=== PATIENT | female | born 1995 | race Caucasian/White ===

== ENCOUNTER → 2019-08-27 10:53 | Outpatient (CLI) | payer OTHER, SELFPAY ==
[2019-08-27 12:19] LABS: HCG,Quantitative 395 mIU/mL
== END ==
PROVIDERS: Visit Provider Nurse Practitioner Obstetrics & Gynecology
DX: Z32.00 Encounter for pregnancy test, result unknown (principal)
CPT/HCPCS: 36415; 84702

== ENCOUNTER → 2019-09-16 15:58 | Outpatient (CLI) | payer OTHER, SELFPAY ==
[2019-09-16 17:02] LABS: Basophils % 0.4 % (0.1-2.0); Eosinophils # 0.1 K/mm3 (0.0-0.4); Eosinophils % 0.5 % (0.1-12.0); Hematocrit 38.7 % (37.0-47.0); Hemoglobin 12.9 g/dL (12.2-16.2); Lymphocytes # 2.2 K/mm3 (0.7-4.5); Lymphocytes % 20.8 % (10-50); Mean Corpuscular HGB Conc 33.3 g/dL (31.8-35.4); Mean Corpuscular Hemoglobin 30.2 pg (27.0-31.2); Mean Corpuscular Volume 90.8 fl (81-99); Mean Platelet Volume 7.8 fl (7.4-10.4); Monocytes # 0.5 K/mm3 (0.1-1.0); Monocytes % 4.8 % (1.7-9.3); Neutrophils # 7.9 K/mm3 (1.8-7.8); Neutrophils % 73.5 % (37.0-80.0); Platelet Count 272 K/mm3 (142-424); Red Blood Count 4.26 M/mm3 (4.20-5.40); Red Cell Distribution Width 12.4 % (11.5-17.5); White Blood Count 10.8 K/mm3 (4.8-10.8)
[2019-09-18 16:58] LABS: HIV Screen 4th Generation wRfx Non Reactive (Non Reactive); Hepatitis B Surface Antigen Negative (Negative); Hepatitis C Antibody <0.1 s/co ratio (0.0-0.9); Rapid Plasma Reagin Ab Titer Non Reactive (NonRea<1:1); Rubella Antibodies, IgG 4.37 index (Immune >0.99)
== END ==
PROVIDERS: Visit Provider Nurse Practitioner Obstetrics & Gynecology
DX: Z34.90 Encounter for supervision of normal pregnancy, unspecified, unspecified trimester (principal)
CPT/HCPCS: 36415; 85025; 86592; 86703; 86762; 86850; 87340; 87380; G0432

== ENCOUNTER → 2019-09-23 12:47 | Outpatient (CLI) | payer OTHER, SELFPAY ==
--- NOTE | 2019-09-23 12:47 | US_ITS ---
PROCEDURE: US OB <= 14 WEEKS FETUS CLINICAL INDICATION: for dates Evaluate 4 dates COMPARISON: No exams were available for comparison FINDINGS: An intrauterine gestational sac is present with a pole with a crown-rump length of 1.71cm correlating to gestational age of 8weeks 2days. heart tones are present with an FHR of 182bpm. Yolk sac is noted. The adnexa unremarkable IMPRESSION: Live IUP at 8 weeks 2 days Estimated due date by Ultrasound is 05/02/2020 Dictated by: Micah Fisher MD 09/23/2019 13:47 Electronically signed by Micah Fisher MD in [place] 09/23/2019 13:47
== END ==
PROVIDERS: PCP Pediatrics; Visit Provider Nurse Practitioner Obstetrics & Gynecology
DX: Z34.90 Encounter for supervision of normal pregnancy, unspecified, unspecified trimester (principal)
CPT/HCPCS: 76801

== ENCOUNTER → 2019-12-15 12:36 | Outpatient (CLI) | payer OTHER, SELFPAY ==
--- NOTE | 2019-12-15 12:36 | US_ITS ---
PROCEDURE: US OB /MATERNAL DETAIL CLINICAL INDICATION: 20wk gestation of Anatomy exam, COMPARISON: US OB <= 14 WEEKS FETUS from 09/23/2019 FINDINGS: Single viable intrauterine gestation. Cephalic position. Placenta: Anterior with a possible posterior wraparound component versus a Ace Garcia contractionplacenta grade 1. There is average amount fluid. The cervix appears satisfactory. Closed and measuring 5 cm transabdominal in length. Complete survey performed and was unremarkable on the submitted images as in PACS. No discrete anomalies identified on survey imaging by technologist. Active fetus. Three-vessel cord with satisfactory umbilical cord insertion. 4- chamber heart noted. Survey of brain & ventricles Unremarkable. Face and neck survey unremarkable. Diaphragm and chest views unremarkable. Abdomen: Both kidneys noted and unremarkable. Stomach noted and satisfactory. Spine: Survey of the spine satisfactory with no anomalies identified nor imaged. Both arms and legs noted. Amniotic Fluid: Adequate. Maternal adnexa: No significant findings. Measurements: Average ultrasound age 19weeks 6days. Gestational Age 19 weeks 4 days Estimated due date by ultrasound age 0905/04/2020. Estimated weight 319g BPD = 19weeks 6days OFD = 20 weeks 3 days HC = 19weeks 4days AC = 19weeks 6days FL = 20weeks 1day Growth Percentile= 64% Heart Rate = 133bpm Cerebellum = 19weeks 6days Humerus = 19weeks 6days HC/AC is 1.16 CI is 0.76 FL/BPD is 0.71 FL/AC is 0.22 IMPRESSION: There is a single live fetus which is in cephalic presentation with an average ultrasound age of 19 weeks 6 days. All parameters correlate with no obvious anomalies. Please see above for detail. Dictated by: Micah Fisher MD 12/15/2019 17:38 Electronically signed by Micah Fisher MD in [place] 12/15/2019 17:38
== END ==
PROVIDERS: PCP Pediatrics; Visit Provider Nurse Practitioner Obstetrics & Gynecology
DX: Z3A.20 20 weeks gestation of pregnancy (principal)
CPT/HCPCS: 76811

== ENCOUNTER → 2020-03-03 09:18 | Outpatient (CLI) | payer OTHER, SELFPAY ==
[2020-03-03 13:07] LABS: Glucose 1 Hour 119 mg/dL (74-100); Glucose,Fasting 89 mg/dl (74-100)
== END ==
PROVIDERS: Visit Provider Nurse Practitioner Obstetrics & Gynecology
DX: Z34.90 Encounter for supervision of normal pregnancy, unspecified, unspecified trimester (principal)
CPT/HCPCS: 36415; 82951

== ENCOUNTER → 2020-04-04 17:11 | Outpatient (CLI) | payer OTHER, SELFPAY | PROVIDERS: Visit Provider Nurse Practitioner Obstetrics & Gynecology | DX: Z34.90 Encounter for supervision of normal pregnancy, unspecified, unspecified trimester (principal) | CPT/HCPCS: 86403 ==

== ENCOUNTER → 2020-04-08 08:28 | Outpatient (CLI) | payer OTHER, SELFPAY ==
--- NOTE | 2020-04-08 08:28 | US_ITS ---
PROCEDURE: US OB BIOPHYSICAL PROFILE CLINICAL INDICATION: sga For gestational age TECHNIQUE: FINDINGS: The following parameters are obtained: Average ultrasound age is Average 35weeks Estimated due date by ultrasound is 05/13/2020. Estimated weight is 2,544g. This is 15th percentile BPD 34 weeks 5 days, OFD 37 weeks 6 days, HC 35 weeks 3 days, AC 35 weeks 1 day, FL 34 weeks 5 days heart rate: 135bpm bpm. HC/AC: 1.01 Cephalic index: 0.76 FL/BPD: 0.78 FL/AC: 0.22 Amniotic fluid index: 8.55cm Qualitative AFV: 2 breathing movements: 2 Gross body movements: 2 Tone: 2 Biophysical profile score: 8 There is a single live fetus which is in cephalic presentation. The cervix is closed and measures 3 to 4 cm trans abdominal. The placenta is anterior and grade 2 IMPRESSION: There is a single live fetus which is in cephalic presentation. Average ultrasound age is 35 weeks 0 days with an estimated weight of 2544 g which is 15th percentile. Amniotic fluid volume is lower normal at 9 cm. Biophysical profile is 8 of 8. Placenta is anterior and grade 2 Dictated by: Micah Fisher MD 04/08/2020 11:55 Micah Fisher MD in [place] 04/08/2020 11:55
== END ==
PROVIDERS: PCP Pediatrics; Visit Provider Nurse Practitioner Obstetrics & Gynecology
DX: O36.5990 Maternal care for other known or suspected poor fetal growth, unspecified trimester, not applicable or unspecified (principal)
CPT/HCPCS: 76811; 76819

== ENCOUNTER 2020-04-13 12:42 | Outpatient (CLI) | payer OTHER, SELFPAY ==
[2020-04-13 13:00] VITALS: BP 128/80; PULSE 75; RESP 18; TEMP 36.9; O2SAT 98
[2020-04-13 13:04] VITALS: BMI 27.2
[2020-04-13 13:10] LABS: Microscopic, Urine URINE MICROSCOPIC (MICROSCOPIC)
[2020-04-13 13:13] LABS: Appearance,Urine CLEAR (Clear); Bilirubin,Urine Negative (Negative); Blood, Urine Negative (Negative); Color,Urine YELLOW (Yellow); Glucose,Urine (UA) Negative (Negative); Ketones,Urine Negative (Negative); Leukocyte Esterase,Urine TRACE (Negative); Nitrate,Urine Negative (Negative); Protein,Urine Negative (Negative); Urobilinogen,Urine 0.2 EU/dl (0.2)
[2020-04-13 13:21] VITALS: BP 128/80; PULSE 75; RESP 18; TEMP 36.9; O2SAT 98; BMI 26.5
[2020-04-13 13:26] LABS: Amphetamine/Metha Screen,Urine Negative ng/ml (<1000); Bacteria,Urine Trace /lpf; Benzodiazepines Screen,Urine Negative ng/ml (<200)
[2020-04-13 13:27] LABS: Barbiturates Screen,Urine Negative ng/ml (<200)
[2020-04-13 13:28] LABS: Cannabinoid Screen,Urine Negative ng/ml (<50); Cocaine Screen,Urine Negative ng/ml (<300)
[2020-04-13 13:29] LABS: Methadone Screen,Urine Negative ng/ml (<300)
[2020-04-13 13:30] LABS: Opiate Screen,Urine Negative ng/ml (<300); Phencyclidine Screen,Urine Negative ng/ml (<25)
== END 2020-04-13 14:28 | disposition home or self-care (01) ==
LOC: OBOUT 12:44 → OB 12:50
PROVIDERS: PCP Pediatrics; Visit Provider Nurse Practitioner Obstetrics & Gynecology
DX: O60.03 Preterm labor without delivery, third trimester (principal); Z3A.37 37 weeks gestation of pregnancy; R11.2 Nausea with vomiting, unspecified
CPT/HCPCS: 59025; 80305; 81001; G0463

== ENCOUNTER 2020-04-14 22:49 | Outpatient (CLI) | payer OTHER, SELFPAY ==
[2020-04-14 23:24] VITALS: BMI 26.5
[2020-04-14 23:29] LABS: Microscopic, Urine URINE MICROSCOPIC (MICROSCOPIC)
[2020-04-14 23:33] LABS: Appearance,Urine CLEAR (Clear); Bilirubin,Urine Negative (Negative); Blood, Urine Negative (Negative); Color,Urine YELLOW (Yellow); Glucose,Urine (UA) Negative (Negative); Ketones,Urine Negative (Negative); Leukocyte Esterase,Urine TRACE (Negative); Nitrate,Urine Negative (Negative); Protein,Urine Negative (Negative); Specific Gravity, Urine <= 1.005 (1.005-1.030); Urobilinogen,Urine 0.2 EU/dl (0.2)
[2020-04-14 23:45] LABS: Fetal Membrane Rupture (Rapid) Negative (Negative)
[2020-04-14 23:47] LABS: Barbiturates Screen,Urine Negative ng/ml (<200)
[2020-04-14 23:48] LABS: Benzodiazepines Screen,Urine Negative ng/ml (<200)
[2020-04-14 23:49] LABS: Amphetamine/Metha Screen,Urine Negative ng/ml (<1000); Cannabinoid Screen,Urine Negative ng/ml (<50)
[2020-04-14 23:50] LABS: Cocaine Screen,Urine Negative ng/ml (<300); Methadone Screen,Urine Negative ng/ml (<300)
[2020-04-14 23:51] LABS: Opiate Screen,Urine Negative ng/ml (<300); RBC,Urine Occasional #/hpf (0-3)
[2020-04-14 23:52] LABS: Bacteria,Urine 1+ /lpf; Phencyclidine Screen,Urine Negative ng/ml (<25)
== END 2020-04-15 00:20 | disposition home or self-care (01) ==
LOC: OBOUT 22:51 → OB 22:54
PROVIDERS: PCP Nurse Practitioner Obstetrics & Gynecology; Visit Provider Obstetrics & Gynecology
DX: O60.03 Preterm labor without delivery, third trimester (principal); Z3A.37 37 weeks gestation of pregnancy
CPT/HCPCS: 59025; 80305; 81001; 84112; G0463

== ENCOUNTER 2020-04-26 05:07 | Inpatient (IN) | payer OTHER, SELFPAY ==
[2020-04-26] VITALS (8 sets, daily range): BP systolic 119–140; BP diastolic 70–83; PULSE 77–95; RESP 16–20; TEMP 36.4–36.8; O2SAT 98–100; BMI 26.5
[2020-04-26 05:46] LABS: Microscopic, Urine URINE MICROSCOPIC (MICROSCOPIC)
[2020-04-26 05:47] LABS: Basophils % 0.2 % (0.1-2.0); Eosinophils # 0.1 K/mm3 (0.0-0.4); Eosinophils % 0.7 % (0.1-12.0); Hematocrit 32.2 % (37.0-47.0); Hemoglobin 10.9 g/dL (12.2-16.2); Lymphocytes # 2.6 K/mm3 (0.7-4.5); Mean Corpuscular HGB Conc 33.9 g/dL (31.8-35.4); Mean Corpuscular Volume 79.6 fl (81-99); Mean Platelet Volume 10.1 fl (7.4-10.4); Monocytes # 0.7 K/mm3 (0.1-1.0); Monocytes % 7.4 % (1.7-9.3); Neutrophils # 6.3 K/mm3 (1.8-7.8); Neutrophils % 64.8 % (37.0-80.0); Platelet Count 222 K/mm3 (142-424); Red Blood Count 4.04 M/mm3 (4.20-5.40); Red Cell Distribution Width 14.5 % (11.5-17.5); White Blood Count 9.7 K/mm3 (4.8-10.8)
[2020-04-26 05:48] LABS: Appearance,Urine CLEAR (Clear); Bilirubin,Urine Negative (Negative); Blood, Urine Negative (Negative); Color,Urine YELLOW (Yellow); Glucose,Urine (UA) Negative (Negative); Ketones,Urine Negative (Negative); Leukocyte Esterase,Urine Negative (Negative); Nitrate,Urine Negative (Negative); Protein,Urine Negative (Negative); Specific Gravity, Urine 1.015 (1.005-1.030); Urobilinogen,Urine 0.2 EU/dl (0.2)
[2020-04-26 05:59] LABS: Barbiturates Screen,Urine Negative ng/ml (<200)
[2020-04-26 06:00] LABS: Amphetamine/Metha Screen,Urine Negative ng/ml (<1000); Benzodiazepines Screen,Urine Negative ng/ml (<200)
[2020-04-26 06:01] LABS: Cannabinoid Screen,Urine Negative ng/ml (<50); Methadone Screen,Urine Negative ng/ml (<300)
[2020-04-26 06:02] LABS: Cocaine Screen,Urine Negative ng/ml (<300)
[2020-04-26 06:03] LABS: Opiate Screen,Urine Negative ng/ml (<300); Phencyclidine Screen,Urine Negative ng/ml (<25)
[2020-04-26 06:18] LABS: Bacteria,Urine 1+ /lpf
[2020-04-26 06:41] LABS: Coronavirus 19 IgG Antibody Positive (Negative); Coronavirus 19 IgM Antibody Negative (Negative)
--- NOTE | 2020-04-26 08:29 | HMH.LABNOT ---
Labor Note - Subjective: Date: 04/26/20 Time: 08:29 regular contraction - Objective: NST:: Reactive Contractions:: every 2-3 minutes Cervical Dilation:: 2 Effacement:: 50% Station: -3 Membranes: artificially ruptured - Fetus: Monitoring?: Yes monitoring type:: External - Assessment: Labor progressing?: Yes Cephalopelvic disproportion?: No Patient Problems: All Active Problems Inguinal strain (Acute) (Acute) - Plan: Anesthesia for epidural?: No Continue to labor down?: Yes Plan for ?: No Continue to monitor?: Yes Start pushing?: No
--- NOTE | 2020-04-26 08:39 | HMH.OBAPHP ---
OB - H&P: HPI Antepartum - History of Present Illness Chief complaint: Pressure and occasional contractions, term History of present illness: She is a 24-year-old 3 para 1 aborta 1 who is 39 weeks and 1 day gestational age. She complains of some pressure and wanted to be induced at 39 weeks. - History of Present Criteria for establishing EDC:: LMP confirmed by 1st trimester US care: good care Ultrasounds: normal 1st trimester US, normal mid trimester US Obstetrical complications: none Medical complications: none - Labs Blood type: A (+) positive Rubella: immune RPR/VDRL: nonreactive GBS status: negative HBsAG: negative (She is COVID Ig G+ today.) [facility] History I have reviewed the patient's past medical history: Yes Medical History: Reports:: Anxiety, Depression Denies:: Diabetes Mellitus Type 1, Diabetes Mellitus Type 2, Migraine, MRSA, Seizures *Have you ever received a pneumonia vaccine?: No *Have you received a flu vaccine this season?: Yes Other Medical History: Reports: Other Laterality Cases: Bilateral: Other Other Surgeries: Yes: Other. 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 Review of Systems - Review of Systems Review of systems:: pertinent systems reviewed and negative unless documented below Meds Home Medications Medication Instructions Recorded Confirmed Type RX: Buspirone HCl [Buspirone 7.5mg 7.5 mg PO BID 10/15/19 04/26/20 History tablets] Mv-Mn/Iron/FA/Herbal/Digestive 1 each PO DAILY 04/26/20 04/26/20 History [ One Tablet] RX: Magnesium 250 mg PO DAILY 04/26/20 04/26/20 History Allergies Allergy/AdvReac Type Severity Reaction Status Date / Time latex Allergy Verified 04/20/20 13:40 OB - H&P: Exam - Physical Exam Vital signs: Temp Pulse Resp BP Pulse Ox 97.5 F L 83 20 119/79 98 04/26/20 07:33 04/26/20 07:33 04/26/20 07:33 04/26/20 07:04/26/20 05:27 - Constitutional no acute distress - Routine HEENT Exam Head: Present: normocephalic Eye: Present: EOMI, PERRL ENT: Present: mucous membranes moist - Routine Neck Exam Present: supple, full ROM - Routine Respiratory Exam Absent: accessory muscle use (good air entry bilaterally), respiratory distress, wheezes, crackles - Routine Cardiovascular Exam Present: RRR. Absent: murmur - Routine Abdominal Exam Present: soft, normoactive bowel sounds. Absent: tenderness, distended, guarding - Routine Rectal Exam Patient deferred: visual exam, digital exam - Routine Exam Patient deferred: external exam, groin exam, perineal exam - Routine Extremities Exam Present: full ROM. Absent: cyanosis, edema - Routine Skin Exam Present: intact. Absent: cyanosis - Routine Neurological Exam Present: alert, oriented X3 - Routine Psychiatric Exam Present: normal affect OB - Results - Labs Labs: Short CBC 04/26/20 Range/Units 05:25 WBC 9.7 (4.8-10.8) K/mm3 Hgb 10.9 L (12.2-16.2) g/dL Hct 32.2 L (37.0-47.0) % Plt Count 222 (142-424) K/mm3 Urine 04/26/20 Range/Units 05:25 Urine Color Yellow (Yellow) Urine Appearance Clear (Clear) Urine pH 7.0 (5.0-8.5) Ur Specific [place] 1.015 (1.005-1.030) Urine Protein Negative (Negative) Urine Glucose (UA) Negative (Negative) OB - A/P Antepartum (1) Normal delivery Current visit: Yes Status: Acute - Additional Plan Planning to breastfeed?: Yes Plan: i
--- NOTE | 2020-04-26 09:20 | P.PN_ITS ---
[facility] Anesthesia Checklist - Structural Data Admitted From: Inpatient Planned Operative Procedure/s: labor epidural Consent for Planned Operative Procedure(s) Verified: Yes - Airway Assessment C-Spine Mobility Assessed: Yes TMJ Mobility Assessed: Yes Dentition: Good Dentition - Neurological Assessment Level of Consciousness: Awake, Alert, Appropriate - Anesthesia Plan Anesthesia Risk discussed: Yes Anesthesia Plan: Verified ASA Class: II Anesthesia Type: Epidural [facility] History I have reviewed the patient's past medical history: Yes Medical History: Reports:: Anxiety, Depression Denies:: Diabetes Mellitus Type 1, Diabetes Mellitus Type 2, Migraine, MRSA, Seizures *Have you ever received a pneumonia vaccine?: No *Have you received a flu vaccine this season?: Yes Other Medical History: Reports: Other Anesthesia experience/problems:: none Laterality Cases: Bilateral: Other Other Surgeries: Yes: Other. 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
--- NOTE | 2020-04-26 11:11 | HMH.LABNOT ---
Labor Note - Subjective: Date: 04/26/20 Time: 11:11 regular contraction - Objective: Contractions:: every 2-3 minutes Cervical Dilation:: 4 Effacement:: 75% Station: -3 Membranes: artificially ruptured - Fetus: Monitoring?: Yes monitoring type:: External - Assessment: Labor progressing?: Yes Cephalopelvic disproportion?: No Patient Problems: All Active Problems Normal delivery (Acute) Inguinal strain (Acute) (Acute) - Plan: Anesthesia for epidural?: Yes Continue to labor down?: Yes Plan for ?: No Continue to monitor?: Yes Start pushing?: No
--- NOTE | 2020-04-26 13:49 | HMH.LABNOT ---
Labor Note - Subjective: Date: 04/26/20 Time: 13:49 regular contraction - Objective: NST:: Reactive Contractions:: every 2-3 minutes Cervical Dilation:: 4-5 Effacement:: 75% Station: -3 Membranes: artificially ruptured - Fetus: Monitoring?: Yes monitoring type:: Internal and External Comment:: I inserted an IUPC - Assessment: Labor progressing?: No Cephalopelvic disproportion?: No Patient Problems: All Active Problems Normal delivery (Acute) Inguinal strain (Acute) (Acute) - Plan: Anesthesia for epidural?: Yes Continue to labor down?: Yes Plan for ?: No Continue to monitor?: Yes Start pushing?: No Comment:: She really has not progressed much over the last couple of hours. We will see how she does over the next few hours. If she fails to progress beyond what she has we will go ahead and do a .
--- NOTE | 2020-04-26 16:00 | HMH.LABNOT ---
Labor Note - Subjective: Date: 04/26/20 Time: 15:35 regular contraction - Objective: NST:: Reactive Contractions:: every 2-3 minutes Cervical Dilation:: 6 Effacement:: 90% Station: -1 Membranes: artificially ruptured - Fetus: Monitoring?: Yes monitoring type:: Internal - Assessment: Labor progressing?: Yes Cephalopelvic disproportion?: No Patient Problems: All Active Problems Normal delivery (Acute) Inguinal strain (Acute) (Acute) - Plan: Anesthesia for epidural?: Yes Continue to labor down?: Yes Plan for ?: No Continue to monitor?: Yes Start pushing?: No
--- NOTE | 2020-04-26 17:17 | HMH.LABNOT ---
Labor Note - Subjective: Date: 04/26/20 Time: 17:17 irregular contractions - Objective: NST:: Reactive Contractions:: every 2-3 minutes Cervical Dilation:: 6 Effacement:: 90% Station: -1 Membranes: artificially ruptured - Fetus: Monitoring?: Yes - Assessment: Labor progressing?: No Cephalopelvic disproportion?: No Patient Problems: All Active Problems Normal delivery (Acute) Inguinal strain (Acute) (Acute) - Plan: Anesthesia for epidural?: Yes Continue to labor down?: Yes Plan for ?: Yes Continue to monitor?: Yes Start pushing?: No Comment:: She really has not progressed much in the last hour and a half. We will give her a little more time and see how she does hopefully this baby's head will come down a little lower and she will dilate up her cervix more. When she has a contraction she does bring the head down quite a bit. There is considerable molding. She is very petite so we will see how she does over the next few hours. If she has not progressed we will plan for a .
--- NOTE | 2020-04-26 19:19 | HMH.LABNOT ---
Labor Note - Subjective: Date: 04/26/20 Time: 19:19 regular contraction - Objective: NST:: Reactive Contractions:: every 2-3 minutes Cervical Dilation:: 6-7 Effacement:: 90% Station: -1 Membranes: artificially ruptured - Fetus: Monitoring?: Yes monitoring type:: Internal - Assessment: Labor progressing?: No Cephalopelvic disproportion?: Yes Patient Problems: All Active Problems Normal delivery (Acute) Inguinal strain (Acute) (Acute) - Plan: Anesthesia for epidural?: Yes Continue to labor down?: No Plan for ?: Yes Continue to monitor?: Yes Start pushing?: No Continue pushing?: No Comment:: She is still about 6 to 7 cm and really has not progressed. The cervix has gotten a little thicker and more edematous. There is significant swelling of the head. She has really not progressed over the last 3 to 4 hours so we will go ahead and do a section for failure to progress and pelvic disproportion. We discussed the risks of surgery that includes bleeding, infection, injuries to the bowel and bladder. We discussed the rare risk of DVT. We did discuss the need for DVT prophylaxis. All questions were answered and consents were signed.
[2020-04-26 20:17] LABS: Cord Blood PH 7.36 (7.35-7.45)
--- NOTE | 2020-04-26 20:43 | HMH.OPNOTE ---
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 Kennedy RAIL CAR WELDER:: Cl Prado Anesthesia: epidural Estimated blood loss (mL): 1,000 Clinical Note:: She is a 24-year-old 3 para 1, aborta 1 who was 39+ weeks gestational age. She was having lots of cramps and lower abdominal pressure so we elected to induce her labor at term. She was started on IV oxytocin and had her membranes ruptured. Under labor epidural she progressed about 6 to 7 cm but the cervix remained edematous and she really did not progress beyond that. As result of that pelvic disproportion was diagnosed and she was taken for a lower segment transverse section. The risks and benefits of surgery discussed the patient and her prior to surgery. Operative findings:: She delivered a liveborn female child at 8:07 PM in the evening of April 26, 2020. The baby was in the direct OP position. She had Apgars of 8 at 1 minute and 9 at 5 minutes. pH was 7.36. Ovaries and tubes appeared normal. The uterus was quite boggy after the surgery. This required a B-Marie suture Operative note:: She was taken to the operating room where spinal anesthesia was found be adequate. She was prepped and draped in normal sterile fashion in the supine position with a leftward tilt. A Crespo catheter was in the bladder. A Pfannenstiel skin incision was made with knife then carried through to the underlying layer of fascia with cautery. The fascia was opened in the midline with cautery and extended laterally using Smith scissors. Bert clamps were applied to the superior aspect of the fascial incision which was tented up and the underlying rectus muscles dissected off using cautery. The Bert clamps were then applied to the inferior aspect of the fascial incision which in a similar fashion was tented up and the underlying rectus muscles dissected off using cautery. The rectus muscles were then in the midline, the peritoneum identified, and entered sharply with Metzenbaum scissors. This incision was then extended superiorly and inferiorly with cautery. We had good visualization of the bladder inferiorly. The bladder peritoneum was then opened in the midline and extended laterally using Metzenbaum scissors. A bladder flap was created digitally. Transverse incision was made through the uterine muscle to the amnion. This incision was then extended laterally using fingers traction. The amnion was entered sharply with knife. There was clear amniotic fluid. The infant's head was then delivered atraumatically. A loose nuchal cord was then reduced. This was followed by the anterior shoulder and the rest of the infant's body atraumatically. The oropharynx and nasopharynx were bulb suctioned. The baby was quite vigorous so we allowed the cord to continue to pulsate for approximately 1 minute. The cord was then doubly clamped and cut. The infant was then handed off to Dr. Rodriguez who assigned Apgars of 8 at 1 minute and 9 at 5 minutes. We then obtained cord blood as well as cord pH. The pH was 7.36. Using gentle traction on the cord and countertraction on the fundus I was able to easily deliver the placenta intact. It had a normal three-vessel cord. The uterus was then cleared of clots and debris . The uterine incision was then closed using running 0 Vicryl suture in a locked fashion. A second layer of the same suture was used to imbricate the first layer. The bladder peritoneum was then closed using running 2-0 Vicryl suture in a locked fashion. The gutters and cul-de-sac were then cleared of clots and debris . There was a small amount of bleeding from the left side and I placed 2 [id number]
--- NOTE | 2020-04-26 20:59 | P.PN_ITS ---
[facility] Anesthesia Record Part I Intake, IV Amount: 800 Estimated blood loss (mL): 1,000 Urine output (mL): 400 Blood Products used (#): none Blood Pressure: 128/77 SaO2: 100 Pulse Rate: 95 Respiratory Rate: 17 Temperature: 98.2 F Patient is:: Awake, Drowsy, Stable Stable to PACU at:: 20:52
--- NOTE | 2020-04-26 21:41 | PC.NURSE ---
2123-detailed report called to PETRA Sharp 2127-pt transported to OB room 277 via hospital bed w/tigist rails up per PETRA Levy and ST Harshil and left in care of PETRA Sharp with bed locked in lowest position, vss, pt stable
--- NOTE | 2020-04-26 21:43 | SUR.OPER ---
2007-viable infant female born at this time
[2020-04-27 07:05] LABS: Hematocrit 29.7 % (37.0-47.0)
--- NOTE | 2020-04-27 07:21 | HMH.PHAVTE ---
[facility] Pharmacy VTE Monitoring - Patient Demographics Admission date: 04/26/20 Report Date: 04/27/20 Time: 07:21 Allergies/Adverse Reactions: Patient Allergies latex Allergy (Verified 04/20/20 13:40) Height: 1.52 m Weight: 61.689 kg Patient Problems: Current Active Problems Normal delivery (Acute) - VTE Risk Labs: VTE Related Lab Results Hgb 10.0 g/dL (12.2-16.2) L 04/27/20 06:10 Hct 29.7 % (37.0-47.0) L 04/27/20 06:10 Plt Count 222 K/mm3 (142-424) 04/26/20 05:25 - Prophylaxis VTE Prophylaxis Ordered?: Yes Types of VTE Prophylaxis: IPCS Thigh High Location of Applied Device: Bilateral Lower Extremeties
--- NOTE | 2020-04-27 08:21 | HMH.ACPN2 ---
Internal Medicine - PN: Subj *Date: 04/27/20 *Time: 08:21 Interval history: She is doing very well this morning. She is eating and drinking and ambulating. She is breast-feeding. Her lochia is normal. Her postoperative hemoglobin is 10.0. Preoperatively it was 10.9. Exam Vital signs and Labs for Last 24 Hours: Temp Pulse Resp BP Pulse Ox 98.1 F 80 18 123/74 100 04/26/20 21:28 04/26/20 21:28 04/26/20 21:28 04/26/20 21:28 04/26/20 21:28 Laboratory Results - last 24 hr 04/26/20 20:10: Cord ABG pH 7.36 04/27/20 06:10: Hgb 10.0 L, Hct 29.7 L I & O for Last 24 hours: Intake & Output 04/24/20 04/25/20 04/26/20 04/27/20 11:59 11:59 11:59 11:59 Intake Total 915 / 915 Output Total 150 / 150 Balance 765 / 765 Weight 136 lb - Constitutional no acute distress - *Routine HEENT Exam Head: Present: normocephalic Eye: Present: EOMI, PERRL ENT: Present: mucous membranes moist Assessment and Plan (1) Normal delivery Current visit: Yes Status: Acute Category: Medical Code(s): O80 - Encounter for full-term uncomplicated delivery (2) pelvic disproportion delivered Current visit: Yes Status: Acute Category: Medical Code(s): O33.9 - Maternal care for disproportion, unspecified (3) Delivery by section of full-term infant Current visit: Yes Status: Acute Category: Medical Code(s): O82 - Encounter for delivery without indication (4) Direct occiput posterior presentation of fetus Current visit: Yes Status: Acute Category: Medical Code(s): O64.0XX0 - Obstructed labor due to incomplete rotation of head, not applicable or unspecified - Assessment and plan all Dx Assessment and Plan for all problems:: She is doing well this morning. We will plan to send her home in 48 hours.
--- NOTE | 2020-04-27 09:47 | P.PN_ITS ---
[facility] Anesthesia Record Part II Discharge Time: 21:28 Destination: Obstetric PACU nurse assessment reviewed?: Yes Patient Condition:: Good Anesthesia Complications:: None Swallowing reflex intact?: Yes Cyanosis?: No Blood Pressure: 123/74 Pulse Rate: 80 Temperature: 98.1 F Mental Status: Alert & Oriented Pain level:: 3 Nausea and/or vomitting:: None Intake, IV Amount: 0 (Normovolemic)
[2020-04-27 09:49] VITALS: BP 123/74; PULSE 80; TEMP 36.7
[2020-04-27 17:34] VITALS: RESP 18
--- NOTE | 2020-04-28 08:53 | P.PN_ITS ---
Internal Medicine - PN: Subj *Date: 04/28/20 *Time: 08:54 Interval history: She is doing well. She still continues to have some pain along her incision. We will plan to send her home tomorrow. She continues to breast-feed. Exam Vital signs and Labs for Last 24 Hours: Temp Pulse Resp BP Pulse Ox 98.1 F 80 18 123/74 100 04/27/20 09:49 04/27/20 09:49 04/27/20 17:34 04/27/20 09:49 04/26/20 21:28 I & O for Last 24 hours: Intake & Output 04/25/20 04/26/20 04/27/20 04/28/20 11:59 11:59 11:59 11:59 Intake Total 915 / 915 Output Total 150 / 150 Balance 765 / 765 Weight 136 lb - Constitutional no acute distress - *Routine HEENT Exam Head: Present: normocephalic Eye: Present: EOMI, PERRL ENT: Present: mucous membranes moist Assessment and Plan (1) Normal delivery Current visit: Yes Status: Acute Category: Medical Code(s): O80 - Encounter for full-term uncomplicated delivery (2) pelvic disproportion delivered Current visit: Yes Status: Acute Category: Medical Code(s): O33.9 - Maternal care for disproportion, unspecified (3) Delivery by section of full-term infant Current visit: Yes Status: Acute Category: Medical Code(s): O82 - Encounter for delivery without indication (4) Direct occiput posterior presentation of fetus Current visit: Yes Status: Acute Category: Medical Code(s): O64.0XX0 - O bstructed labor due to incomplete rotation of head, not applicable or unspecified - Assessment and plan all Dx Assessment and Plan for all problems:: She is doing well. She continues to breast-feed. She does have some swelling in her feet. We will plan to send her home tomorrow. We will continue with her current pain management.
[2020-04-28 17:27] LABS: POC Glucose,Bedside 108 (70-110)
[2020-04-29 08:00] VITALS: BP 134/91; PULSE 91; RESP 18; TEMP 36.7; O2SAT 98
--- NOTE | 2020-04-29 09:00 | [facility].OBDCSM ---
General - General Admission date:: 04/26/20 Discharge date: 04/29/20 HPI - History of Present Illness History of present illness: She is a 24-year-old 3 now para 2 who was 39 1 weeks gestational age. She was brought in at term for induction of labor because she was feeling lots of pressure. Hospital Course Hospital Course: She was started on IV oxytocin and had her membranes ruptured. Under labor epidural she only progressed to about 6 cm. As result of that pelvic disproportion was diagnosed and she was taken for a primary lower segment transverse section. She delivered a liveborn female child at 8:07 PM in the evening of April 26, 2020. The baby weighed 7 pounds 2 ounces and was 18-1/2 inches long. She had Apgars of 8 at 1 minute and 9 at 5 minutes. She has done well postoperatively and has remained afebrile throughout her hospitalization. She is eating and drinking and ambulating. She is breast-feeding. Her lochia is normal. She has a part set of blood, she is rubella immune and was group B streptococcus negative. Her icing machine operator is Dr. Quiroga. She does complain of some constipation likely as a result of her narcotics and we have given her Dulcolax suppository this morning. She will continue with her stool softeners at home. She is discharged home to follow-up with me in approximately 2 weeks time. She is had her elvin removed and Steri-Strips applied. She will continue with her vitamins and iron. She will continue with ibuprofen. She was given a prescription for Percocet 5/325 number 30 tablets. She was given the usual instructions with respect to limiting her activity, driving and sexual activity. Her condition on discharge is stable and improved. Rhogam Administration: Not Indicated Objective Vital signs: Temp Pulse Resp BP Pulse Ox 98.1 F 80 18 123/74 100 04/27/20 09:49 04/27/20 09:49 04/27/20 17:34 04/27/20 09:49 04/26/20 21:28 no acute distress - *Routine HEENT Exam Head: Present: normocephalic Eye: Present: EOMI, PERRL ENT: Present: mucous membranes moist Results Labs on day of discharge: Labs from last 24 hours 04/28/20 09:52 POC Glucose 108 DS: Diagnosis - Discharge Diagnosis (1) Normal delivery Status: Acute (2) pelvic disproportion delivered Status: Acute (3) Delivery by section of full-term infant Status: Acute (4) Direct occiput posterior presentation of fetus Status: Acute Discharge Plan - Patient Discharge Instructions ACTIVITY: No heavy lifting DIET: continue same diet Additional Instructions: NOTHING IN VAGINA FOR 6 WEEKS NO HEAVY LIFTING OR STRENUOUS ACTIVITY NO DRIVING WHILE TAKING PAIN MEDICATION FOLLOW-UP WITH DR. ZAMUDIO ON Patient Instructions: Depression, Hemorrhage, DI for , DI for Pre-eclampsia, DI for Surgical Site Infection, [facility] Post Discharge Instructions, Preventing the Spread of Coronavirus Discharge Instructions - Follow up Plan Disposition: Home, Self-Jail Medications: Home Medications Medication Instructions Recorded Confirmed Type Buspirone HCl [Buspirone 7.5mg 7.5 mg PO BID 10/15/19 04/26/20 History tablets] Magnesium 250 mg PO DAILY 04/26/20 04/26/20 History Mv-Mn/Iron/FA/Herbal/Digestive 1 each PO DAILY 04/26/20 04/26/20 History [ One Tablet] Oxycodone HCl/Acetaminophen 1 tab PO Q4-6H PRN #30 tab 04/29/20 Rx [Percocet 5/325mg tablet] Prescriptions/Medication Reconciliation: New Oxycodone HCl/Acetaminophen [Percocet 5/325mg tablet] 1 tab PO Q4-6H PRN #30 tab PRN Reason: Severe Pain Continued Buspirone HCl [Buspirone 7.5mg tablets] 7.5 mg PO BID Mv-Mn/Iron/FA/Herbal/Digestive [ One Tablet] 1 each PO DAILY Magnesium 250 mg PO DAILY - Problem Reconciliation Problems Reviewed?: Yes
== END 2020-04-29 10:45 | disposition home or self-care (01) | DRG 788 ==
PROVIDERS: Admitting Provider Nurse Practitioner Obstetrics & Gynecology; PCP Pediatrics; Visit Provider Nurse Practitioner Obstetrics & Gynecology
PROC: 10D00Z1 Extraction of Products of Conception, Low, Open Approach (ICD-10-PCS; CPT 59514; principal; 2020-04-26 19:50)
DX: O64.0XX0 Obstructed labor due to incomplete rotation of fetal head, not applicable or unspecified (principal); Z3A.39 39 weeks gestation of pregnancy; Z37.0 Single live birth; O69.81X0 Labor and delivery complicated by cord around neck, without compression, not applicable or unspecified; O75.89 Other specified complications of labor and delivery
CPT/HCPCS: 59514; 59025; 80305; 81001; 82800; 82962; 85014; 85018; 85025; 86328; 86850; C1758; J2405

== ENCOUNTER 2023-11-13 11:58 | Emergency (ER) | payer OTHER, SELFPAY ==
[2023-11-13 12:10] VITALS: BP 131/89; PULSE 73; RESP 19; TEMP 36.8; O2SAT 97; BMI 21.9
--- NOTE | 2023-11-13 12:21 | EXP.UTC ---
Discharge Plan Disposition Patient Disposition: Home, Self-Care Condition: Good Prescriptions Prescriptions: New azithromycin [Zithromax Z-Ramos] 250 mg tablet See Rx Instructions .ROUTE .COMPLEX 5 Days Qty: 6 0RF Rx Instructions: For 250 mg dose pack: take 500 mg today (day 1), then 250 mg for 4 days (days 2-5) iysibbrfmgoysxl-ispzrsikm-SH [Bromfed DM] 2-30-10 mg/5 mL syrup 10 ml PO Q6H PRN (Reason: cold symptoms) Qty: 200 0RF Referrals Follow up/Referrals: Darryl Lomax [Primary Care Provider] - See instructions Activity Restrictions/Add. Instructions Additional Instructions/Restrictions: Continue your steriods and inhalers as prescribed Start oral antibiotics *Monitor Temp, Over the counter Motrin or Tylenol as directed/as needed Tylenol every 4 hours and Motrin every 6 hours (as long as your family doctor has told you that you can take it) for fever or pain. and straight to ER if unable to lower temp less than 101.0 after medication given *Warm salt water gargles may help to soothe the throat *Throat Lozenges? *Warm fluids like tea with honey may help to soothe the throat? *Sleep elevated *Humidifier/Vaporizer Bromfed may cause drowsiness. Know how it effects you (your child) before driving, caring for small child, or sending your child to school. Not other antihistamines/allergy medications while taking bromfed Follow up IMMEDIATELY for new or worsening symptoms or no Noticeable improvement over the next 48-72 hours. 911 for difficulty breathing or swallowing Clinical Impressions Clinical Impression: Bronchitis Sinusitis Qualifiers: Sinusitis location: unspecified location Chronicity: unspecified Qualified Code(s): J32.9 - Chronic sinusitis, unspecified Instructions Patient Instructions: Sinusitis Discharge ED Provider: Kim Higuera [facility] General Stated complaint: Cough, SOA, runny nose, congestion Mode of Arrival: Ambulatory Source of Information: Patient Limitations: No Limitations Time Seen by Provider: 11/13/23 12:22 Description of Symptoms (Recalled from Triage Doc. by RN): PATIENT C/O COUGH, CONGESTION, FATIGUE, SOA, AND FEELING LIGHT-HEADED X 3 WEEKS HEENT Symptoms (Recalled from RN notes): Yes Resp Symptoms (Recalled from RN notes): Yes Skin Symptoms (Recalled from RN notes): No MS Symptoms (Recalled from RN notes): No Functional Status (Recalled from RN notes): WNL History of Present Illness Provider Complaint: Patient states that she was having some allergy problems about 3 weeks ago and then started with sinus congestion/pressure, cough, pressure under her eyes, fatigue and SOA at times States she seen her PCP on Saturday and they thought it was her allergies so he give her some Prednisone, inhalers and allergy medication States that the steriods did help some but she is still having the pressure under her eyes, cough, feeling SOA at times after coughing episodes and over all not feeling well so she came in to get checked Related Data Previous Rx's Medication Instructions Recorded azithromycin 250 mg tablet See Rx Instructions PO .COMPLEX 5 11/13/23 (Zithromax Z-Ramos) days #6 tabs pjruwwffkyxzqit-rpfukrbudjxnugr-BT 10 ml PO Q6H PRN cold symptoms 11/13/23 2 mg-30 mg-10 mg/5 mL oral syrup #200 mL (Bromfed DM) Allergies Allergy/AdvReac Type Severity Reaction Status Date / Time latex Allergy Verified 04/13/22 09:09 Worker's Comp Is this a Worker's Comp case?: No [facility] Disclaimer: The information contained in this section may have been updated after the patient was seen, as this information can be updated by other users. Surgical History (Updated 04/13/22 @ 09:17 by JERRI Omalley) Hx of section Social History Smoking Status: Never smoker alcohol intake: never substance use type: denies use current occupational status: employed Travel in the last 8 weeks: None housing: house ROS Obtained: Yes All systems reviewed & no additional complaints except as documented and Yes Systems reviewed as appropriate & no additional complaints except as documented Constitutional Constitutional: Reports system reviewed and no additional complaints, except as documented, Reports as per HPI, Reports fatigue and Reports headache(s) ENT Ears, Nose, Mouth, and Throat: Reports system reviewed and no additional complaints, except as documented, Reports as per HPI, Reports headache(s), Reports sinus pain and Reports sinus pressure Cardiovascular Cardiovascular: Reports system reviewed and no additional complaints, except as documented and Reports as per HPI Respiratory Respiratory: Reports system reviewed and no additional complaints, except as documented, Reports as per HPI, Reports shortness of breath (at times after coughing episodes and moving around inhaler helps), Reports chest congestion and Reports cough Neurologic Neurologic: Reports headache(s) Endocrine Endocrine: Reports fatigue Physical Exam General General appearance: alert and in no apparent distress ENT ENT exam: Present mucous membranes moist Expanded ENT Exam Nose exam: Present sinus tenderness Throat exam: Present other (Pharyngeal erythema noted with PND) Chest Chest inspection: Present normal inspection; Absent symmetric chest wall rise or tenderness Respiratory Respiratory exam: Present normal lung sounds bilaterally; Absent respiratory distress or wheezes Cardiovascular Cardiovascular exam: Present regular rate, normal rhythm and normal heart sounds Neurological Exam Neurological exam: Present alert, oriented X3 and normal gait Medical Decision Making Kalpesh Inquiry Pt receiving controlled substance: No Kalpesh was queried for this patient: No Vital Signs: 11/13/23 12:10 Temperature 98.3 F Temperature Source Oral Pulse Rate [Left Brachial] 73 Respiratory Rate 19 Blood Pressure [Left Arm] 131/89 Blood Pressure Mean [Left Arm] 103 Blood Pressure Source [Left Arm] Automatic Cuff Blood Pressure Position [Left Arm] Sitting 02 Sat by Pulse Oximetry 97 Oxygen Delivery Method Room Air Medical Decision Narrative: Discussed CXR and patient declined at this time will give Rocephin injection and dc home with azithromycin
[2023-11-13] MEDS: LIDOCAINE 1% 5ML PF VIAL IM (12:42)
[2023-11-13] MEDS: cefTRIAXone 1GM VIAL 1 GM IM (12:42)
[2023-11-13 12:43] VITALS: BP 131/89; PULSE 73; RESP 19; TEMP 36.8; O2SAT 97
== END 2023-11-13 12:50 | disposition home or self-care (01) ==
PROVIDERS: Emergency Provider Nurse Practitioner; PCP Pediatrics
DX: J20.9 Acute bronchitis, unspecified (principal); J01.90 Acute sinusitis, unspecified; R06.02 Shortness of breath; R05.9 Cough, unspecified; R09.81 Nasal congestion
CPT/HCPCS: 96372; 99204; 99212; G0463; J0696

== ENCOUNTER 2024-05-22 15:42 | Outpatient (CLI) | payer OTHER, SELFPAY ==
--- NOTE | 2024-05-22 15:43 | US_ITS ---
PROCEDURE: US TRANSVAGINAL CLINICAL INDICATION: Pelvic Pain COMPARISON: No exams were available for comparison FINDINGS: Transvaginal sonographic images of the pelvis were obtained. UTERUS: 8.0cm x 5.0cmx 4.1cm anteverted with a combined endometrial thickness of 8.8mm. The endometrium appears trilaminar. LEFT OVARY: 3.6 cmx2.1cmx1.3cm with a volume of 4.9ml. There is a follicle in the left ovary measuring 1.2 cm x 0.9 cm x 1.1 cm. It has fluid with a ground-glass appearance and could represent a corpus luteum RIGHT OVARY: 2.7 cmx 1.3cmx1.6 cm with a volume of 2.9ml. There are multiple small peripheral follicles giving the ovary a polycystic appearance. Both ovaries are seen and appear normal. Doppler flow to both ovaries are seen. There is trace fluid in the cul-de-sac. IMPRESSION: 1. Anteverted uterus normal in shape and size. The endometrium is trilaminar and measures 8.8 mm. 2. Both ovaries are seen and appear normal. The left ovary contains a small follicle that could be a corpus luteum. The right ovary appears polycystic. 3. There is trace fluid in the cul-de-sac. Dictated by: Aldo Downey MD 05/23/2024 07:02 Aldo Downey MD in OV 05/23/2024 07:02
== END 2024-05-22 23:59 | disposition home or self-care (01) ==
LOC: RAD 15:43
PROVIDERS: PCP Pediatrics; Visit Provider Nurse Practitioner Obstetrics & Gynecology
DX: R10.2 Pelvic and perineal pain (principal)
CPT/HCPCS: 76830

== ENCOUNTER 2025-02-09 12:15 | Outpatient (CLI) | payer OTHER, SELFPAY | END 2025-02-09 23:59 | disposition home or self-care (01) | LOC: LAB 12:15 | PROVIDERS: PCP Pediatrics; Visit Provider Nurse Practitioner Obstetrics & Gynecology | DX: Z32.01 Encounter for pregnancy test, result positive (principal) | CPT/HCPCS: 36415; 84144; 84702 ==